=== PATIENT | female | born 1935 | race Caucasian/White ===

== ENCOUNTER 2017-07-19 13:30 | Inpatient (IN) ==
[2017-07-19] MEDS ORDERED: FUROSEMIDE 40 MG/4 ML INJECTION IVP ONE (13:55)
[2017-07-19] MEDS: SALINE FLUSH 10ml SYRINGE IVF PRN ×2 (13:56→14:04)
--- NOTE | 2017-07-19 13:59 | Emergency Department Report ---
Asthma HPI - General Stated Complaint: afib Time Seen by Provider: 07/19/17 13:37 Source: patient, family, RN notes reviewed, old records reviewed, other (Pts nurse assessor) Mode of arrival: ambulatory Limitations: no limitations - History of Present Illness HPI Narrative: 81yo woman presents to the ER for evaluation of a cough. Pt has had a chronic cough ever since a CELI 15 days ago. Pt was in the hospital then for a cardioversion for A-fib. Pt has an extensive cardiac hx. Since she was discharged, she has had a chronic cough, dyspnea, orthopnea, and JVD. Pt went to her nurse assessor's office today and was found to be in A-fib with RVR (120s) . Pts nurse assessor initially wanted to perform an ER work up himself, but txfr' ed pt to the ER for w/up. complaint: shortness of breath Onset (ago): day(s) (15) Severity: moderate Associated symptoms: dry cough, leg edema - Related Data Home Medications Medication Instructions Recorded Confirmed Glucosamine/MSM/Chondroit/C/Mn 0.5 tab PO DAILY #0 11/14/09 07/19/17 [Flexi Joint Tablet] Vitamin E Acetate [Vitamin E] 400 unit PO DAILY #0 11/14/09 07/19/17 Ascorbic Acid [Vitamin C] 1,000 mg PO DAILY 07/03/17 07/19/17 Calcium Carbonate [Calcium] 500 mg PO DAILY 07/03/17 07/19/17 Cholecalciferol (Vitamin D3) 1,000 unit PO DAILY 07/03/17 07/19/17 [Vitamin D3] Rivaroxaban [Xarelto] 20 mg PO DAILY 07/03/17 07/19/17 Milk of Magnesia [Mom] 30 ml PO PRN PRN 07/19/17 07/19/17 Multivitamin [One Daily] 1 each PO DAILY 07/19/17 07/19/17 Previous Rx's Medication Instructions Recorded Sotalol [Betapace] 80 mg PO BID #60 tab 07/04/17 Allergies Allergy/AdvReac Type Severity Reaction Status Date / Time phenytoin Allergy Mild Rash Verified 07/19/17 14:06 adhesive Allergy Unknown Verified 07/19/17 14:06 Review of Systems All systems: reviewed and negative except as stated Cardiovascular: Reports: as per HPI, dyspnea on exertion, orthopnea, edema. Denies: chest pain, palpitations, syncope, paroxysmal nocturnal dyspnea Respiratory: Reports: as per HPI, cough, dyspnea. Denies: wheezes, hemoptysis, stridor Integumentary: Reports: as per HPI, erythema PFSH Patient Stated Medical History Cardiac Arrhythmia Yes: A-fib Hypertension Yes Myocardial Infarction No Diabetes Mellitus Type 1 No Clotting Problems Yes: xeralto Osteoarthritis Yes Other Musculoskeletal Yes: MS, osteoporosis Other Yes: RAYNAUD'S Medical History Updates: Mitral valve regurgitation. A-fib. Tachy-rosie syndrome (refused pacer). Osteoporosis. Osteoarthritis. Constipation. Allergic rhinitis Physical Exam - Limitations Limitations: no limitations - General General appearance: alert, in no apparent distress - Normal Exams: Head:: Normocephalic without trauma Eyes:: Pupils are PERRLA w/ EOMI, No scleral icterus, irritation, or foreign bodies noted ENMT:: No facial trauma, nasal exudates, pharyngeal erythema, or exudates are noted Musculoskeletal:: No tenderness, or deformity noted Neurological:: Patient is alert, and oriented Psychiatric:: Patient exhibits, appropriate attention - Neck Neck exam: Present: normal inspection, full ROM, trachea midline, other (JVD present). Absent: tenderness, lymphadenopathy - Chest Chest inspection: Present: normal inspection, symmetric chest wall rise. Absent : tenderness, rash - Respiratory Respiratory exam: Present: crackles (In middle lung richard). Absent: normal lung sounds bilaterally (Lack of air movement in lower lobes), respiratory distress, wheezes, stridor, prolonged expiratory phase - Cardiovascular Cardiovascular exam: Present: tachycardia, irregular rhythm. Absent: regular rate, normal rhythm, rubs, gallop, clicks - Abdominal Exam Abdominal exam: Present: soft, normal bowel sounds. Absent: distention, tenderness, guarding, rebound, rigidity - Extremities Exam Extremities exam: Present: full ROM, normal capillary refill, pedal edema, other (Dependent erythema). Absent: normal inspection, tenderness - Psychiatric Psychiatric exam: Present: agitated, anxious Course - Consultations Consultation #1: Dr. Baptiste: - Difficult pt and - unclear whether due to cognitive deficit or other - H/o Mitral regurgitation, A-fib, Tachy/rosie - refused pacer - Saw PCM Jun for pharyngeal erythema; did not discuss with nurse assessor - Underwent CELI 11 APR prior to cardioversion; no pharyngeal abn - Placed on sotalol and warned of risk of torsades de points - Pt seen in clinic today in A-fib with RVR; clinically has CHF - Pt thinks that her cough and LE erythema are 2/2 sotalol; difficulty explaining pts dx and sx to pt; appears to be a trust deficit - Please call with results of testing/eval - Recommend lasix 1500: Requests pt be admitted to hospitalist service. Will plan to rate control and possibly cardiovert. Time: 13:50 Consultation #2: Hospitalist: Will admit for obs and consult cardiology. Time: 15:55 Vital Signs Temperature 97.9 F 07/19/17 13:31 Pulse Rate 100 07/19/17 13:31 Respiratory Rate 20 07/19/17 13:31 Blood Pressure 154/86 H 07/19/17 13:31 Pulse Oximetry 97 07/19/17 13:31 Temperature 97.9 F 07/19/17 13:31 Pulse Rate 100 07/19/17 15:30 Respiratory Rate 25 H 07/19/17 15:30 Blood Pressure 141/78 H 07/19/17 15:30 Pulse Oximetry 98 07/19/17 15:00 Dyspnea - MDM Narrative Medical decision making narrative: Pt with new-onset CHF in the setting of A-fib with RVR. Sx improved following IV lasix. After discussion with pts nurse assessor, discussed obs admission with hospitalist. Pt accepted for obs admission. - Differential Diagnosis Differential diagnosis: Likely: Pneumonia, COPD exacerbation, Pulmonary edema systolic, Pulmonary edema dystolic, Pneumothorax - Medical Records Attestation: I reviewed the patient's medical records. - Lab Data Attestation: I reviewed the patient's lab results. Result diagrams: 07/19/17 14:05 07/19/17 14:05 Lab Results 07/19/17 07/19/17 Range/Units 14:05 14:05 WBC 5.1 (4.5-11.0) T/MM3 RBC 4.26 (4.00-5.20) M/MM3 Hgb 13.1 (12-16) GM/DL Hct 40.0 (36-46) % MCV 93.9 (80-100) UM3 MCH 30.8 (26-34) UUG MCHC 32.8 (31-37) GM/DL RDW Std Deviation 45.7 (36.9-50.2) FL Plt Count 205 (130-400) T/MM3 MPV 10.7 (9.4-12.4) UM3 Immature Gran % (Auto) 0.2 (0.0-0.5) % Neut % (Auto) 49.7 (33-66) % Lymph % (Auto) 29.8 (23-45) % Terry % (Auto) 9.9 H (0-9.0) % Eos % (Auto) 9.0 H (0-4) % Baso % (Auto) 1.4 (0-2) % Neut # (Auto) 2.6 (1.8-7.7) T/MM3 Lymph # (Auto) 1.5 (1-4.8) T/MM3 Terry # (Auto) 0.5 (0-0.8) T/MM3 Eos # (Auto) 0.5 (0-0.5) T/MM3 Baso # (Auto) 0.1 (0-0.2) T/MM3 Abs Immat Gran (auto) 0.01 (0.00-0.03) T/MM3 Turbidity < 20 (0-20) Sodium 140 (134-144) MEQ/L Potassium 4.7 (3.6-5) MEQ/L Chloride 103 (98-107) MEQ/L Carbon Dioxide 29 (22-30) MEQ/L Anion Gap 8 (5-15) meq/L BUN 15.0 (7-17) MG/DL Creatinine 0.8 (0.7-1.2) mg/dL GFR Calculation 69 BUN/Creatinine Ratio 19 (6-26) RATIO Glucose 87 (65-110) MG/DL Calculated Osmolality 269 (261-280) MOSM/KG Calcium 10.2 (8.4-10.2) MG/DL Icterus Index < 2 (0-7) Troponin I < 0.012 (0-0.12) ng/ml NT-Pro-B Natriuret Pep 3470 H (0-175) pg/mL Specimen Hemolysis < 15 (0-25) - Radiology Data Attestation: I reviewed the patient's radiology results. - EKG Data EKG #1 EKG attestation: Yes: I reviewed and interpreted this EKG. EKG shows normal: axis, intervals, QRS complexes, ST-T waves Rate [ED.COU.EKR]: normal Rhythm: A.Fib Disposition Clinical Impression: Atrial fibrillation with RVR CHF exacerbation Qualifiers: Heart failure type: unspecified Qualified Code(s): I50.9 - Heart failure, unspecified Disposition: 02 [place] [facility] [place] Language[place] Condition: Improved Prescriptions: No Action Glucosamine/MSM/Chondroit/C/Mn [Flexi Joint Tablet] 0.5 tab PO DAILY #0 Calcium Carbonate [Calcium] 500 mg PO DAILY Rivaroxaban [Xarelto] 20 mg PO DAILY Ascorbic Acid [Vitamin C] 1,000 mg PO DAILY Multivitamin [One Daily] 1 each PO DAILY Vitamin E Acetate [Vitamin E] 400 unit PO DAILY #0 Cholecalciferol (Vitamin D3) [Vitamin D3] 1,000 unit PO DAILY Sotalol [Betapace] 80 mg PO BID #60 tab Milk of Magnesia [Mom] 30 ml PO PRN PRN PRN Reason: Constipation Referrals: Hung Niño MD [Primary Care Provider] - Time of Disposition: 16:02 - Seen By: physician
--- NOTE | 2017-07-19 15:55 | XRay Report ---
Indication: Dyspnea PROCEDURE: XR chest 1V: Encounter: Initial Comparison: July 02, 2017 Findings: The lungs are stable in appearance without new focal airspace consolidation. There is no pleural effusion or pneumothorax. The heart size, pulmonary vascularity and mediastinal contours are unchanged. IMPRESSION: Stable appearance of the chest without acute cardiopulmonary disease. .
--- NOTE | 2017-07-19 17:01 | History & Physical Report ---
History of Present Illness Date: 07/19/17 Chief complaint: Cough HPI: Breanne Singh is a pleasant 81-year-old woman who states she has had a dry cough since just before her cardioversion, which was done on 07/04/[address] Baptiste. She was reportedly converted out of A. fib into sinus rhythm for 1-2 days, but then went back into atrial fibrillation. She states that she could feel her heart going fast, but she denies any chest pain. She's had progressive shortness of breath, and has been sleeping with a wedge underneath her shoulders and with her feet elevated. She's had a little bit of swelling, but states that she always has "thick legs". She reports that she's been dizzy but denies syncope. She had a fall about a month ago without injury after tripping over a box. She states that she's had clear sinus drainage, which Dr. Niño thought could be allergies. She denies headaches, unilateral weakness, or abnormal paresthesias, though states that she does have occasional tingling in her fingertips because of Raynaud's. She denies any appetite changes, nausea, vomiting or diarrhea. She has been a little bit constipated. She denies any dysuria, but has been voiding frequently since receiving Lasix in the emergency department. She denies dysphasia, but has mild acid reflux. She was actually seen in Dr. Baptiste's office on 07/19/17, and he recommended evaluation in the emergency department for acute CHF exacerbation. Her pro-BNP was elevated at 3470. Troponin was negative. Chest x-ray showed cardiomegaly, but no significant CHF. EKG showed A. fib with a rate of 97. She was given Lasix [address] Baptiste was notified, and recommended hospital admission. At that time, the hospitalist service was consulted, and the patient was admitted to observation status. Review of Systems All systems PM: 10-point ROS was reviewed, no additional remarkable complaints except - Constitutional Constitutional: Present: as per HPI - EENMT Eyes: Present: requires corrective lenses Balance: Present: as per HPI Nose: Present: as per HPI Mouth/Throat: Present: as per HPI - Cardiovascular Cardiovascular: Present: as per HPI Vascular: Present: see HPI - Respiratory Respiratory: Present: as per HPI - Gastrointestinal Gastrointestinal: Present: as per HPI - Genitourinary Genitourinary: Present: as per HPI - Musculoskeletal Musculoskeletal: Absent: abnormal gait - Integumentary/Breasts Integumentary: Absent: rash, wounds - Neurological Neurological: Present: as per HPI - Psychiatric Psychiatric: Absent: anxiety - Endocrine Endocrine: Present: palpitations - Hematologic/Lymphatic Hematologic/Lymphatic: Present: easy bleeding, easy bruising - Allergic/Immunologic Allergic/Immunologic: Present: seasonal rhinorrhea Past Medical History Medical History Updates: Mitral valve regurgitation. A-fib, tachy-rosie. Tachy -rosie syndrome (refused pacer). HTN. Multiple sclerosis. Osteoporosis. Osteoarthritis. Constipation. Allergic rhinitis Surgical History: CELI with cardioversion 07/04/17: EF 60%, moderate mitral regurgitation, moderate tricuspid regurgitation, temporary cardioversion into sinus rhythm. Back surgery in 2013. Colonoscopy 01/15/13, by Dr. Ureña: Moderate sigmoid diverticulosis. Enterocele ligation and posterior vaginal vault reconstruction on 02/05/08, by Dr. Lee. Left rotator cuff repair in 2002. 2, appendectomy Family History Updates: Father had Parkinson's and at age 83. Mother of a massive stroke at age 79. Sister has atrial fibrillation. Brother with prediabetes. Another brother with osteoarthritis and stomach ulcers. Family History: As Above - Social History Smoking status: Never smoker Substance use type: does not use Alcohol intake frequency: does not drink Household members: spouse Social history: PCP: Dr. Niño CV: Dr. Baptiste Medications Home Medications Medication Instructions Recorded Confirmed Type Glucosamine/MSM/Chondroit/C/Mn 0.5 tab PO DAILY #0 11/14/09 07/19/17 History [Flexi Joint Tablet] Vitamin E Acetate [Vitamin E] 400 unit PO DAILY #0 11/14/09 07/19/17 History Ascorbic Acid [Vitamin C] 1,000 mg PO DAILY 07/03/17 07/19/17 History Calcium Carbonate [Calcium] 500 mg PO DAILY 07/03/17 07/19/17 History Cholecalciferol (Vitamin D3) 1,000 unit PO DAILY 07/03/17 07/19/17 History [Vitamin D3] Rivaroxaban [Xarelto] 20 mg PO DAILY 07/03/17 07/19/17 History Sotalol [Betapace] 80 mg PO BID #60 tab 07/04/17 07/19/17 Rx Milk of Magnesia [Mom] 30 ml PO PRN PRN 07/19/17 07/19/17 History Multivitamin [One Daily] 1 each PO DAILY 07/19/17 07/19/17 History Allergies Allergy/AdvReac Type Severity Reaction Status Date / Time phenytoin Allergy Mild Rash Verified 07/19/17 14:06 adhesive Allergy Unknown Verified 07/19/17 14:06 Exam Vital Signs: Temperature 97.9 F 07/19/17 13:31 Pulse Rate 100 07/19/17 15:30 Respiratory Rate 25 H 07/19/17 15:30 Blood Pressure 141/78 H 07/19/17 15:30 Pulse Oximetry 98 07/19/17 15:00 Telemetry Rhythm: A-fib - Constitutional Present: no acute distress, well nourished, well developed, thin - Routine HEENT Exam Head: Present: normocephalic Eye: Present: PERRL. Absent: conjunctival icterus, scleral injection ENT: Present: mucous membranes moist, oropharynx clear - Routine Neck Exam Present: supple, JVD - Routine Respiratory Exam Present: CTA bilaterally - Routine Cardiovascular Exam Present: murmur (2/6), irregularly irregular - Routine Abdominal Exam Present: soft, normoactive bowel sounds, non distended, non tender - Routine Extremities Exam Present: edema (trace bilateral lower extremity), normal capillary refill, extremity cold to touch (both hands are slightly cyanotic and cool to touch, consistent with patient's report of Raynaud's) - Routine Skin Exam Present: intact, dry, warm - Routine Neurological Exam Present: alert, oriented X3, CN II-XII intact (mild right eye ptosis without any other cranial nerve abnormalities), moving all extremities, vision grossly intact, hearing grossly intact, normal speech. Absent: altered mental status - Routine Psychiatric Exam Present: normal affect, normal thought process, cooperative Results - Labs CBC & Chem 7: 07/19/17 14:05 07/19/17 14:05 - ECG Data Tracing #1 I reviewed this ECG and interpreted as documented below: A. fib, rate 97. No ST segment elevation or depression. - Imaging and Cardiology Chest x-ray Status: image reviewed by me Additional comments: No CHF findings. Assessment and Plan (1) CHF exacerbation Current visit: Yes Status: Acute Assessment and Plan: Assessment CHF exacerbation Mitral valve regurgitation A-fib, tachy-rosie - declined pacemaker Recent CELI with cardioversion on 07/04/17, Dr. Baptiste discontinued atenolol and diltiazem and placed the patient on sotalol 80 mg twice a day. HTN Multiple sclerosis Osteoporosis Osteoarthritis Constipation Allergic rhinitis Plan Admit, observation status under the hospitalist service. PCP: Dr. Niño. CHF exacerbation, A-fib -Consult Dr. Baptiste: hold sotalol per Dr. Baptiste (in case it's contributing to cough, edema) -Diuresing well s/p Lasix 40 mg IV in ED - Dr. Baptiste recommends 40 mg IV BID. Renal function is stable (BUN 15, creatinine 0.8); K 4.7. -tele, measure I&O, daily weight -continue Xarelto Constipation -PRN meds Advanced directives -DPOA: Ney, son -Full code Discussed with Dr. Baptiste, Dr. Sharma, and Dr. Ford. DVT Prophylaxis: Xarelto Resuscitation Status: Full Code - Physician Narrative Physician: Dee Dee Ford MD Narrative: Date: 07/19/17 Time: 1829 Mrs. Singh was seen after arriving on the medical unit. She describes ARITA, cough, and increased ankle/abdominal swelling for the past ~10 days and when she is in afib in the past. No chest pain reported. The patient's primary concern when I spoke with her was of her "white tongue" which is been present since several days before cardioversion on 07/04. She has been voiding frequently since Lasix was administered in the emergency room and reports she is breathing a little better now than she was when she presented to the ER earlier today. Oropharynx without erythema however the tongue has a faint white coating on it. Respirations nonlabored with good airflow, faint basilar crackles R>L; irregularly irregular rhythm. +3 pitting edema bilateral lower extremities. Weight actually down somewhat from admission earlier this month. Chest x-ray reviewed by myself-borderline cardiomegaly and minor increased vascular markings/redistribution. Similar to chest x-ray one patient was admitted . Twelve-lead EKG with atrial fibrillation, no acute changes, rate 97 Diuresis initiated, continue as described above but times of Lasix changed to 7 AM/2 PM did frequency the patient is running to the bathroom currently to minimize disruption of sleep. Etiology of white tongue unclear-may represent thrush and will treat empirically as this is clearly causing patient significant concern. Discussed with Dr. Baptiste and Dr. Sharma. Hospital Course Summary Disclaimer: The visit summary below is not to be considered part of the above Progress Note. Hospital Course: 07/19/17 Admit, observation status under the hospitalist service. PCP: Dr. Niño. CHF exacerbation, A-fib -Consult Dr. Baptiste: hold sotalol per Dr. Baptiste (in case it's contributing to cough, edema) -Diuresing well s/p Lasix 40 mg IV in ED - Dr. Baptiste recommends 40 mg IV BID. Renal function is stable (BUN 15, creatinine 0.8); K 4.7. -tele, measure I&O, daily weight -continue Xarelto Constipation -PRN meds Advanced directives -DPOA: Ney, son -Full code
[2017-07-19 17:02] VITALS: BMI 25.9
[2017-07-19] MEDS ORDERED: ACETAMINOPHEN 325 MG TABLET PO PRN (17:16)
[2017-07-19] MEDS ORDERED: ONDANSETRON 4 MG/2 ML INJECTION IVP PRN (17:16)
[2017-07-19] MEDS ORDERED: SENNA + DOCUSATE TABLET PO PRN (17:16)
[2017-07-19] MEDS ORDERED: BISACODYL 10 MG SUPPOSITORY RECTALLY PRN (17:16)
[2017-07-19] MEDS ORDERED: FUROSEMIDE 40 MG/4 ML INJECTION IVP SCH (19:00)
--- NOTE | 2017-07-19 21:02 | Cardiology Consult Note ---
History of Present Illness Consult reason: atrial fibrillation, congestive heart failure, known to you History of present illness: Patient seen in office and in emergency department [address] Siu Admitted from our office the emergency department. Patient started Feeling worse about one day following cardioversion as she went back in atrial fibrillation. She had initially felt much better following the cardioversion. Complains of shortness of breath with any activity like walking the bathroom, associated with heart racing and palpitations , at times some dizziness. No chest pain. No syncope presyncope or falls. He also complains of some Sore throat, worse with cough. Apparently seen by Dr. Jennings 2 days after her Ron cardioversion and she was reassured HAD some redness, no dysphagia fever chills or neck lumps. She hasn't been able to lie down due to dyspnea and cough that is dry. Noticed increased lower extremity edema as well. tried to bring her to the emergency department over the weekend but patient refused. She presented to my office not feeling well with a myriad of complaints as above and was unable to lie down if at 30 head up due to cough and dyspnea. Of note, about the time of her cardioversion I had lengthy discussion about starting sotalol in attempt to maintain sinus rhythm also a discussion regarding the proarrhythmia associated with this drug, and really most antiarrhythmic drugs. Patient and verbalized understanding. 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 Review of Systems All systems PM: 10-point ROS was reviewed, no additional remarkable complaints except Review of systems: Except as below - Constitutional Constitutional: Present: fatigue. Absent: chills, fever(s) - Cardiovascular Cardiovascular: Present: palpitations, dyspnea on exertion, orthopnea, edema. Absent: chest pain, syncope - Respiratory Respiratory: Present: cough, dyspnea on exertion, wheezing. Absent: hemoptysis , pain on inspiration, excessive phlegm production [facility] Patient Stated Medical History Multiple Sclerosis Yes Cardiac Arrhythmia Yes: A-fib Hypertension Yes Clotting Problems Yes: xeralto Osteoarthritis Yes Other Musculoskeletal Yes: osteoporosis Shingles Yes: 2016 Other Yes: RAYNAUD'S Medical History Updates: Mitral valve regurgitation. A-fib, tachy-rosie. Tachy -rosie syndrome (refused pacer). HTN. Multiple sclerosis. Osteoporosis. Osteoarthritis. Constipation. Allergic rhinitis Surgical History: RON with cardioversion 07/04/17: EF 60%, moderate mitral regurgitation, moderate tricuspid regurgitation, temporary cardioversion into sinus rhythm. Back surgery in 2013. Postop A. fib required DC cardioversion 2013. Colonoscopy 01/15/13, by Dr. Ureña: Moderate sigmoid diverticulosis. Enterocele ligation and posterior vaginal vault reconstruction on 02/05/08, by Dr. Lee. Left rotator cuff repair in 2002. 2, appendectomy Family History Updates: Father had Parkinson's and at age 83. Mother of a massive stroke at age 79. Sister has atrial fibrillation. Brother with prediabetes. Another brother with osteoarthritis and stomach ulcers. - Social History Smoking status: Never smoker Substance use type: does not use Alcohol intake frequency: does not drink Household members: spouse service: No Current occupational status: retired Current residence: Apartment/Private Home Medications Home Medications Medication Instructions Recorded Confirmed Type Glucosamine/MSM/Chondroit/C/Mn 0.5 tab PO DAILY #0 11/14/09 07/26/17 History [Flexi Joint Tablet] Vitamin E Acetate [Vitamin E] 400 unit PO DAILY #0 11/14/09 07/26/17 History Ascorbic Acid [Vitamin C] 1,000 mg PO DAILY 07/03/17 07/26/17 History Calcium Carbonate 500 mg PO DAILY 07/03/17 07/26/17 History Cholecalciferol (Vitamin D3) 1,000 unit PO DAILY 07/03/17 07/26/17 History [Vitamin D3] Rivaroxaban [Xarelto] 20 mg PO DAILY 07/03/17 07/26/17 History Milk of Magnesia [Mom] 30 ml PO PRN PRN 07/19/17 07/26/17 History Multivitamin [One Daily] 1 tab PO DAILY 07/19/17 07/26/17 History Amiodarone [Pacerone] 200 mg PO BID #60 tab 07/21/17 07/26/17 Rx Carvedilol [Coreg] 6.25 mg PO BIDWM #60 tab 07/21/17 07/26/17 Rx Loratadine [Claritin] 10 mg PO ACB tab 07/21/17 07/26/17 Rx Nystatin Oral Liq. [Mycostatin] 5 ml PO QID 5 Days #100 ml 07/21/17 07/26/17 Rx Bumetanide Tab [Bumex 1 mg Tab] 1 mg PO DAILY #0 07/26/17 07/26/17 Rx Docusate Sodium [Colace] 200 mg PO DAILY 07/26/17 07/26/17 History Potassium Chloride [K-DUR 10 mEq 10 meq PO DAILY #60 tab 07/26/17 07/26/17 Rx Tablet] Senna + Docusate [Senna Plus 1 tab PO DAILY PRN 07/26/17 07/26/17 History Tablet] Allergies Allergy/AdvReac Type Severity Reaction Status Date / Time phenytoin Allergy Mild Rash Verified 07/26/17 10:55 adhesive Allergy Unknown Verified 07/26/17 10:55 Exam Vital signs: Temperature 97.9 F 07/19/17 13:31 Pulse Rate 108 H 07/19/17 17:01 Respiratory Rate 24 07/19/17 17:01 Blood Pressure 142/78 H 07/19/17 17:01 Pulse Oximetry 98 07/19/17 18:30 - Constitutional mild distress, other (positive orthopnea equivalent, unable to lie down at 30 due to cough) - Routine HEENT Exam Head: Present: normocephalic, atraumatic Eye: Present: EOMI, PERRL ENT: Present: mucous membranes moist Throat: other (oropharyngeal erythema mild to moderate possible small exudates on the right) - Routine Neck Exam Present: supple, JVD (at the mandibular angle), normal carotid upstroke. Absent : carotid bruit, lymphadenopathy, thyromegaly - Routine Chest/Breast/Axilla Exam Chest wall: Absent: tenderness - Routine Respiratory Exam Present: CTA bilaterally - Routine Cardiovascular Exam Present: no murmur, tachycardia, irregularly irregular - Routine Abdominal Exam Present: soft, normoactive bowel sounds, non distended, non tender. Absent: organomegaly, mass - Routine Extremities Exam Present: no edema (look puffy "lipidema" but no pitting edema, positive varicosities), pulses intact, normal capillary refill. Absent: cyanosis, clubbing - Routine Skin Exam Present: intact, dry. Absent: cyanosis, erythema - Routine Neurological Exam Present: alert, oriented X3, CN II-XII intact, moving all extremities, vision grossly intact, hearing grossly intact, normal speech. Absent: motor deficit, hemineglect, facial asymmetry - Routine Psychiatric Exam Present: cooperative, anxious, agitated, paranoid (initially, seems to calm down and she started feeling better following diuresis with IV Lasix in emergency department) Results 07/21/17 05:35 07/21/17 05:35 Intake and Output 07/19/17 07/19/17 07/19/17 06:59 14:59 22:59 Output Total 300 / 300 Balance -300 / -300 Output: Urine 300 / 300 Other: Urine Appearance Clear Urine Color Pale Yellow Urine Odor Normal # Voids 1 Weight 62.2 kg Patient Weight 07/20/17 06:59 Weight 62.2 kg - Imaging and Cardiology Echo: report reviewed EKG results: report reviewed, image reviewed Imaging & Cardiology Narrative: 07/19/17 20:59 RON cardioversion 07/04/2017 report reviewed 1. Borderline left atrial enlargement. 2. Normal LV size and systolic function. EF of 60%. 3. Moderate mitral regurgitation. 4. Moderate tricuspid regurgitation. 5. Very slightest degree of "smoke sign" in the left atrial appendage with reduced flow velocity but no demonstrable clot. 6. Successful DC cardioversion into sinus rhythm. 7. Medication postop were adjusted. See Medication list. I am going to discontinue Atenolol and Diltiazem and place the patient on Sotalol 80 mg b.i.d. in an attempt to maintain sinus rhythm and control symptoms. Risks and benefits including the risk of pro-arrhythmia were discussed with the patient and her and they are in agreement. We will do serial EKGs in the office and also continue future observation of valvular heart disease and previous history of tachy-rosie syndrome, for which patient had declined a pacemaker, at present not immediately indicated nevertheless. 07/19/17 21:18 Chest x-ray from ER reviewed Dr. Raman siu showed CHF - EKG Interpretation EKG: no acute changes EKG shows: atrial fibrillation EKG interpretations - EKG EKG results cardiology: no acute changes EKG shows: atrial fibrillation (with mild RVR) Assessment and Plan - Assessment and Plan (1) CHF exacerbation Problem details: Due to atrial fibrillation, RVR, mitral regurgitation Status : Resolved IV diuresis and monitor BMP I&O's and daily weight and blood pressure (2) Atrial fibrillation with RVR Status: Acute DC sotalol Start amiodarone By mouth carvedilol for rate control and CHF Repeat DC cardioversion, after adequate diuresis, to enhance safety of the procedure and increase her rate of success lower left atrial pressure that follows diuresis Continue anticoagulation (3) Mitral regurgitation Status: Chronic Medical therapy for now (4) Sick sinus syndrome Status: Chronic This is based on previous outpatient cardiac monitors past at 1218 months and her post-cardioversion EKG sinus bradycardia first-degree AV block and subsequent A. fib with RVR to a small medication change (see RON cardioversion report ) - Assessment and Plan High complexity decision making in regards to 1. choice of antiarrhythmic therapy , risk and benefits 2. Timing of repeat cardioversion, in relationship to CHF status, reflecting left atrial pressure, adequate antiarrhythmic therapy on board, risks and benefits and possible emergent need to treat severe bradycardia 3. Tachybradycardia syndrome management 4. Mitral regurgitation management, medical versus potential surgical 5.Patient and needing a lot of Reassurance, as there were extremely anxious, and initially upset, but felt much better with treatment initiated New and become more cooperative Also explained to the patient her that her A. fib with RVR associated with CHF is a reason for her symptoms, and they are unlikely related to her sotalol. Time spent approximately 75 minutes Hospital Course Summary Disclaimer: The visit summary below is not to be considered part of the above Progress Note. Hospital Course: 07/19/17 Admit, observation status under the hospitalist service. PCP: Dr. Niño. CHF exacerbation, A-fib -Consult Dr. Baptiste: hold sotalol per Dr. Baptiste (in case it's contributing to cough, edema) -Diuresing well s/p Lasix 40 mg IV in ED - Dr. Baptiste recommends 40 mg IV BID. Renal function is stable (BUN 15, creatinine 0.8); K 4.7. -tele, measure I&O, daily weight -continue Xarelto Constipation -PRN meds Advanced directives -DPOA: Ney, son -Full code
[2017-07-19] MEDS: NYSTATIN 500,000 units/5 ml ORAL LIQUID PO SCH (21:50)
[2017-07-19] MEDS: CARVEDILOL 6.25 MG TABLET PO SCH (21:53)
[2017-07-20] MEDS: FUROSEMIDE 40 MG/4 ML INJECTION IVP SCH ×2 (06:59→14:16)
[2017-07-20] MEDS: SALINE FLUSH 10ml SYRINGE IVF PRN (06:59)
[2017-07-20] MEDS: CARVEDILOL 6.25 MG TABLET PO SCH ×2 (08:15→17:17)
[2017-07-20] MEDS: POM RIVAROXABAN 20 MG TABLET PO SCH (08:16)
[2017-07-20] MEDS: ASCORBIC ACID 500 MG TABLET PO SCH (08:16)
[2017-07-20] MEDS: MULTI-VITAMIN PLAIN TABLET PO SCH (08:16)
[2017-07-20] MEDS: NYSTATIN 500,000 units/5 ml ORAL LIQUID PO SCH ×5 (08:16→22:41)
[2017-07-20] MEDS: AMIODARONE 200 MG TABLET PO SCH ×3 (08:16→22:40)
[2017-07-20] MEDS: CALCIUM CARBONATE 500 MG TABLET PO SCH (08:16)
[2017-07-20] MEDS: VITAMIN E 400 UNIT CAPSULE PO SCH (08:16)
[2017-07-20] MEDS: GLUCOSAMINE/CHONDROITIN 500 MG/400 MG CAPSULE PO SCH (08:16)
[2017-07-20] MEDS ORDERED: LORATADINE 10 MG TABLET PO ONE (11:16)
[2017-07-20] MEDS ORDERED: MENTHOL COUGH DROPS (RICOLA) MM PRN (11:17)
--- NOTE | 2017-07-20 11:38 | Progress Note ---
- Date 07/20/17 Subjective: F/U: CHF excerbation, a-fib (tachy-rosie), hypertension, sore throat. Lenora is seen this morning while resting in bed with her , Paolo, at the bedside. She reports that she feels a little better today. She states that she has been up and walking in the forrest[place] and denies any chest pain, shortness of breath, dyspnea on exertion, abdominal pain, nausea or vomiting. Her appetite has been fair to poor. She has good urinary output and bowels are moving. She does complain of persistent sore throat which she states has been present since prior to admission. She was seen by her PCP, Dr. Niño, prior to admission who thought her sore throat was from sinus drainage. She admits to a history of seasonal allergies and takes Claritin at home, which she has not been on since admission. No fevers or chills. Throat is clear with very mild erythema and no swelling, discharge, masses. Uvula is midline without swelling or deviation. She is noted to have some white debris on her tongue, concerning for thrush. She was started on nystatin on 07/19/17 but refused her dose because she didn't want to take any medication if she didn't know if it would help. She has expressed significant anxiety about all of her recent medication changes, specifically the financial cost of the medications and wasting them. Case management is working with her to see if bubble wrapped medications may be a better way for her. Labs today are unremarkable. Telemetry reveals rate controlled a-fib with occasional tachycardia. She denies any dizziness, palpitations or near syncope. She was seen and evaluated by Dr. Baptiste in consultation and started on amiodarone with discontinuation of her sotalol. Weight is trending down and edema improved with resolution of orthopnea and dyspnea. Objective Vital signs: Temperature 97.0 F 07/20/17 08:07 Pulse Rate 108 H 07/20/17 08:07 Respiratory Rate 18 07/20/17 08:07 Blood Pressure 149/93 H 07/20/17 08:07 Pulse Oximetry 92 07/20/17 08:07 Rhythm: Atrial Fibrillation with Normal Ventricular Rate Height/Weight/BMI: Height 5 ft 1 in Weight 132 lb 7.965 oz Body Mass Index 25.9 Comments: Sitting up in bed with her at the bedside. - Constitutional Present: no acute distress, well nourished, well developed, cooperative Comments: Appears anxious specifically about medications changes and cost associated with changes. - Routine HEENT Exam Head: Present: normocephalic, atraumatic Eye: Present: PERRL. Absent: conjunctival icterus ENT: Present: dentition normal Comments: Mucous membranes tacky; white debris on tongue concerning for thrush; uvula midline without swelling or deviation; very mild erythema to oral pharynx without discharge, swelling; voice unchanged. - Routine Respiratory Exam Present: CTA bilaterally. Absent: respiratory distress, stridor, wheezes Comments: Breathing easily on room air; no cough or conversational dyspnea. - Routine Cardiovascular Exam Present: S1, S2, murmur, irregularly irregular - Routine Abdominal Exam Present: soft, normoactive bowel sounds, non tender - Routine Extremities Exam Present: edema (1+ bilaterally), non tender, full ROM, pulses intact - Routine Back/Spine/Pelvis Exam Back/Spine: Present: full ROM. Absent: vertebral tenderness - Routine Musculoskeletal Exam Musculoskeletal: Present: no clubbing or cyanosis, moving extremities well - Routine Skin Exam Present: intact, dry, warm Comments: Afebrile. - Routine Neurological Exam Present: alert, moving all extremities, hearing grossly intact, normal speech - Routine Lymphatic Exam Lymphatic: Absent: lymphedema - Routine Psychiatric Exam Present: cooperative, good insight, anxious Results - Labs CBC & Chem 7: 07/20/17 04:08 07/20/17 04:08 Assessment and Plan (1) CHF exacerbation Problem details: Due to atrial fibrillation, RVR, mitral regurgitation Current visit: Yes Status: Acute Assessment and Plan: Assessment CHF exacerbation Mitral valve regurgitation A-fib, tachy-rosie - declined pacemaker Recent CELI with cardioversion on 07/04/17, Dr. Baptiste discontinued atenolol and diltiazem and placed the patient on sotalol 80 mg twice a day. Hypertension Multiple sclerosis Osteoporosis Osteoarthritis Constipation Allergic rhinitis Plan - 07/20/17: Due to persistent a-fib with occasional RVR in conjunction with CHF exacerbation requiring diuresis and close monitoring and addition/changes in cardiac medication, the patient was changed to inpatient status. CHF exacerbation, A-fib -Evaluated by Dr. Baptiste. Home sotolol discontinued. Amiodarone initated 400mg BID on 07/19/17. -Continued rate controlled a-fib with occasional RVR per telemetry. Continue to monitor closely. -Weight trending down (137.2 on admission, 132.7 today). Continue Lasix 40mg IV BID. Renal function stable. Monitor renal function and electrolytes closely. -Continue Xarelto for DVT prophylaxis. Constipation -Will add Miralax daily as well as Senna + in AM scheduled with PRN medications as needed. -Encourage oral intake. Sore throat -Present prior to admission. White debris noted to tongue. -Nystatin solution initiated 07/19 but patient refused due to cost. Discussed potential benefits with patient and and she is willing to take it. -Restart home Claritin for chronic allergic rhinitis and sinus drainage. Patient remains afebrile. Time spent with patient and family 36 minutes. DVT Prophylaxis: SCD's, Xarelto Resuscitation Status: Full Code - Time spent with patient Time with patient PN: 35 minutes - Physician Narrative Physician: Dee Dee Ford MD Narrative: Date: 07/20/17 Time: 1700 I have independently evaluated and examined this patient. I reviewed the chart, the patient's history, and the RIG WELDER/PA's documented findings as above. We discussed and formulated the assessment and plan as above with additions as below: Mrs. Singh was seen with family members at the bedside. She reports improvement in dyspnea and exertional dyspnea with no reported chest pain or palpitations overnight. She was able to rest fairly well and weight is down 4 pounds. Respirations nonlabored, good airflow, breath sounds clear, irregular cardiac rhythm. Minimal white plaque on tongue today compared to yesterday. Plans reviewed with Dr. Baptiste; labs reviewed with patient, her and son. Continue diuresis and amiodarone. Converted from IV Lasix to oral Bumex starting in a.m. Telemetry strips reviewed by myself-atrial fibrillation/flutter with rates 90- 110. Hospital Course Summary Disclaimer: The visit summary below is not to be considered part of the above Progress Note. Hospital Course: 07/19/17 Admit, observation status under the hospitalist service. PCP: Dr. Niño. CHF exacerbation, A-fib -Consult Dr. Baptiste: hold sotalol per Dr. Baptiste (in case it's contributing to cough, edema) -Diuresing well s/p Lasix 40 mg IV in ED - Dr. Baptiste recommends 40 mg IV BID. Renal function is stable (BUN 15, creatinine 0.8); K 4.7. -tele, measure I&O, daily weight -continue Xarelto Constipation -PRN meds Advanced directives -DPOA: Ney son -Full code Plan - 07/20/17: Due to persistent a-fib with occasional RVR in conjunction with CHF exacerbation requiring diuresis and close monitoring and addition/changes in cardiac medication, the patient was changed to inpatient status. CHF exacerbation, A-fib -Evaluated by Dr. Baptiste. Home sotolol discontinued. Amiodarone initated 400mg BID on 07/19/17. -Continued rate controlled a-fib with occasional RVR per telemetry. Continue to monitor closely. -Weight trending down (137.2 on admission, 132.7 today). Continue Lasix 40mg IV BID. Renal function stable. Monitor renal function and electrolytes closely. -Continue Xarelto for DVT prophylaxis. Constipation -Will add Miralax daily as well as Senna + in AM scheduled with PRN medications as needed. -Encourage oral intake. Sore throat -Present prior to admission. White debris noted to tongue. -Nystatin solution initiated 07/19 but patient refused due to cost. Discussed potential benefits with patient and and she is willing to take it. -Restart home Claritin for chronic allergic rhinitis and sinus drainage. Patient remains afebrile. Time spent with patient and family 36 minutes.
--- NOTE | 2017-07-20 16:08 | Cardiology Progress Note ---
Subjective Interval history: Angella feeling much her today, has been to the bathroom many times putting out about 200 cc of urine she says but couldn't remember how many times. She is a retired RN. Her dry cough is much better, now she is able to lie down. No shortness of breath walking the bathroom no chest pain or pressure. His had some chronic pain in both shoulders up attributes to her previous "bad shoulders ", not worse with walking activity or exertion. But even worse with the range of motion, but she thinks that when she lies on her left side seemed to make it worse at times. Said she had done a lot of lifting and previous jobs growing up. No chest pain or shoulder pain/upper back pain today walking the bathroom. IMPRESSION: January 2017 1. Pharmacological stress nuclear scan associated with chest heaviness with only mild partial response to sublingual nitroglycerin. This is by itself considered nonspecific. 2. Electrically associated with a [address] segment depression, positive for ischemia by EKG criteria. Frequent PVCs and later occasional PACs were present. 3. Myocardial perfusion scan nevertheless does not show any significant perfusion defect. It is considered normal with normal LV ejection fraction. she Denies dizziness or palpitations. 10 system review is negative otherwise. Sore throat has improved I&O's appear inaccurate at least -1000 cc, weights down at least four kilograms since admission yesterday. Potassium down to 3.6 rest of her chemistry, BUN creatinine and CBC okay. AST AST and TSH/T4 were normal 2 weeks ago Telemetry A. fib mostly 80s and 90s EKG no acute changes Troponin negative 2 Exam Vital signs: Temperature 96.0 F L 07/20/17 15:39 Pulse Rate 88 07/20/17 15:39 Respiratory Rate 18 07/20/17 15:39 Blood Pressure 130/74 07/20/17 15:39 Pulse Oximetry 96 07/20/17 15:39 Inpatient Medications: Generic Name Dose Route Start Last Admin Trade Name Freq PRN Reason Stop Dose Admin Acetaminophen 325 - 650 mg 07/19/17 17:16 Tylenol PO Q5H PRN Discomfort Amiodarone HCl 400 mg 07/20/17 09:00 07/20/17 08:16 Pacerone PO 400 mg BID EFRA Administration Ascorbic Acid 1,000 mg 07/20/17 09:00 07/20/17 08:16 Vitamin C PO Not Given DAILY [facility] Bisacodyl 10 mg 07/19/17 17:16 Dulcolax RECTALLY DAILY PRN Constipation Calcium Carbonate 500 mg 07/20/17 09:00 07/20/17 08:16 Calcium PO Not Given DAILY [facility] Carvedilol 6.25 mg 07/19/17 21:00 07/20/17 08:15 Coreg PO 6.25 mg BIDWM [facility] Administration Cholecalciferol 1,000 unit 07/20/17 09:00 07/20/17 08:16 Vit. D-3 PO Not Given DAILY [facility] Furosemide 40 mg 07/20/17 07:00 07/20/17 14:16 Lasix 40 Mg/4 Ml IVP 40 mg 07,14 [facility] Administration Glucosamine/Chondroitin 1 cap 07/20/17 09:00 07/20/17 08:16 Osteo Bi-Flex PO Not Given DAILY [facility] Loratadine 10 mg 07/21/17 06:30 Claritin PO ACB [facility] Magnesium Hydroxide 30 ml 07/19/17 17:16 07/19/17 22:02 Mom PO 30 ml DAILY PRN Administration Constipation Menthol 1 lozenge 07/20/17 11:17 Ricola Sf MM PRN PRN Cough Multivitamins 1 tab 07/20/17 09:00 07/20/17 08:16 Theragran PO Not Given DAILY [facility] Nystatin 5 ml 07/19/17 21:00 07/20/17 12:04 Mycostatin PO 07/29/17 20:59 5 ml QID [facility] Administration Ondansetron HCl 4 mg 07/19/17 17:16 Zofran IVP Q6H PRN Nausea &/or vomiting Polyethylene Glycol 17 gm 07/21/17 09:00 Miralax PO DAILY [facility] Rivaroxaban 20 mg 07/20/17 09:00 07/20/17 08:16 Xarelto PO 20 mg DAILY [facility] Administration Senna/Docusate Sodium 1 tab 07/19/17 17:16 Senna Plus Tablet PO BID PRN Constipation Senna/Docusate Sodium 1 tab 07/21/17 09:00 Senna Plus Tablet PO DAILY [facility] Sodium Chloride 10 - 80 ml 07/19/17 13:37 07/20/17 06:59 Iv Flush IVF 10 ml PRN PRN Administration Flushing Vitamin E 400 unit 07/20/17 09:00 07/20/17 08:16 Vitamin E PO Not Given DAILY [facility] Discontinued Medications Generic Name Dose Route Start Last Admin Trade Name Ra PRN Reason Stop Dose Admin Furosemide 40 mg 07/19/17 13:55 07/19/17 14:01 Lasix 40 Mg/4 Ml IVP 07/19/17 13:56 40 mg O ONE Administration Furosemide 40 mg 07/19/17 19:00 Lasix 40 Mg/4 Ml IVP 07,19 [facility] Loratadine 10 mg 07/20/17 11:16 07/20/17 14:16 Claritin PO 07/20/17 11:17 10 mg O ONE Administration - Constitutional no acute distress - Routine HEENT Exam Head: Present: normocephalic, atraumatic Eye: Present: EOMI, PERRL ENT: Present: mucous membranes moist - Routine Neck Exam Present: full ROM, normal carotid upstroke. Absent: JVD, carotid bruit, lymphadenopathy, thyromegaly - Routine Respiratory Exam Present: CTA bilaterally - Routine Cardiovascular Exam Present: no murmur, irregularly irregular. Absent: bradycardia, tachycardia, JVD - Routine Abdominal Exam Present: soft, normoactive bowel sounds, non distended, non tender. Absent: organomegaly - Routine Extremities Exam Present: no edema, pulses intact, normal capillary refill. Absent: cyanosis, clubbing - Detailed Upper Extremity Exam Shoulder/Upper Arm: Bilateral normal inspection, Bilateral full ROM - Routine Skin Exam Present: intact, warm. Absent: cyanosis, erythema - Routine Neurological Exam Present: alert, oriented X3, CN II-XII intact, moving all extremities, vision grossly intact, hearing grossly intact, normal speech. Absent: motor deficit, hemineglect, facial asymmetry - Routine Psychiatric Exam Present: normal affect, anxious (appears much calmer today) Results 07/20/17 04:08 07/20/17 04:08 - Imaging and Cardiology Echo: report reviewed Imaging & Cardiology Narrative: 07/20/17 16:01 IMPRESSION: 1. Pharmacological stress nuclear scan associated with chest heaviness with only mild partial response to sublingual nitroglycerin. This is by itself considered nonspecific. 2. Electrically associated with a [address] segment depression, positive for ischemia by EKG criteria. Frequent PVCs and later occasional PACs were present. 3. Myocardial perfusion scan nevertheless does not show any significant perfusion defect. It is considered normal with normal LV ejection fraction. - EKG Interpretation EKG shows: atrial fibrillation Assessment and Plan - Assessment and Plan (1) CHF exacerbation Problem details: Due to atrial fibrillation, RVR, mitral regurgitation Current visit: Yes Status: Acute Has diuresed very well , I'm going to switch her to oral Bumex order potassium supplement and follow-up PA and lateral chest x-ray in the morning She remains on room air. Follow-up labs in the morning. CHF education (2) Atrial fibrillation with RVR Current visit: Yes Status: Acute Rate better controlled on Coreg, amiodarone just started high-dose loading will finish on Sunday, Sunday morning will be 200 mg twice a day for one month then 100-200 mg daily. Risk and benefits and possible lifelong complications including possibility of irreversible pulmonary fibrosis, liver eye or organ toxicity discussed. 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 Will order baseline pulmonary function tests and DLCO, about one week allowing for her CHF to improves. cont Xarelto ,well tolerated . Options of treatment discussed, patient prefers to delay repeat cardioversion until she feels stronger in a later date. I would allow amiodarone loading to take place, and achieving lower left atrial pressure crease to assess and safety rates of cardioversion. Also discussed with the patient and family, Serious symptoms of severe dizziness or syncope that could happen if severe bradycardia occurs, in that case she would need to activate 911 and come the emergency room. (3) Mitral regurgitation Current visit: Yes Status: Chronic (4) Sick sinus syndrome Current visit: Yes Status: Chronic - Assessment and Plan She appears much better today I will follow the patient intermittently while in the hospital. Treatment plan discussed with hospitalist Feel free to contact me should you have cardio vascular concerns. Patient follow-up in about one week. Thank you Hospital Course Summary Disclaimer: The visit summary below is not to be considered part of the above Progress Note. Hospital Course: 07/19/17 A
--- NOTE | 2017-07-20 16:53 | Cardiology Progress Note ---
Exam Vital signs: Temperature 96.0 F L 07/20/17 15:39 Pulse Rate 88 07/20/17 15:39 Respiratory Rate 18 07/20/17 15:39 Blood Pressure 130/74 07/20/17 15:39 Pulse Oximetry 95 07/20/17 16:25 Inpatient Medications: Generic Name Dose Route Start Last Admin Trade Name Freq PRN Reason Stop Dose Admin Acetaminophen 325 - 650 mg 07/19/17 17:16 Tylenol PO Q5H PRN Discomfort Amiodarone HCl 400 mg 07/20/17 09:00 07/20/17 08:16 Pacerone PO 07/22/17 21:00 400 mg BID [facility] Administration Amiodarone HCl 200 mg 07/23/17 09:00 Pacerone PO BID [facility] Ascorbic Acid 1,000 mg 07/20/17 09:00 07/20/17 08:16 Vitamin C PO Not Given DAILY [facility] Bisacodyl 10 mg 07/19/17 17:16 Dulcolax RECTALLY DAILY PRN Constipation Bumetanide 1 mg 07/21/17 09:00 Bumex 1 Mg Tab PO [id number] [facility] Calcium Carbonate 500 mg 07/20/17 09:00 07/20/17 08:16 Calcium PO Not Given DAILY [facility] Carvedilol 6.25 mg 07/19/17 21:00 07/20/17 08:15 Coreg PO 6.25 mg BIDWM [facility] Administration Cholecalciferol 1,000 unit 07/20/17 09:00 07/20/17 08:16 Vit. D-3 PO Not Given DAILY [facility] Glucosamine/Chondroitin 1 cap 07/20/17 09:00 07/20/17 08:16 Osteo Bi-Flex PO Not Given DAILY [facility] Loratadine 10 mg 07/21/17 06:30 Claritin PO ACB [facility] Magnesium Hydroxide 30 ml 07/19/17 17:16 07/19/17 22:02 Mom PO 30 ml DAILY PRN Administration Constipation Menthol 1 lozenge 07/20/17 11:17 Ricola Sf MM PRN PRN Cough Multivitamins 1 tab 07/20/17 09:00 07/20/17 08:16 Theragran PO Not Given DAILY [facility] Nystatin 5 ml 07/19/17 21:00 07/20/17 12:04 Mycostatin PO 07/29/17 20:59 5 ml QID [facility] Administration Ondansetron HCl 4 mg 07/19/17 17:16 Zofran IVP Q6H PRN Nausea &/or vomiting Polyethylene Glycol 17 gm 07/21/17 09:00 Miralax PO DAILY [facility] Potassium Chloride 10 meq 07/20/17 17:30 K-Dur 10 Meq Tablet PO BIDWM [facility] Potassium Chloride 20 meq 07/20/17 16:12 K-Dur 20 Meq Tablet PO 07/20/17 16:13 O ONE Rivaroxaban 20 mg 07/20/17 09:00 07/20/17 08:16 Xarelto PO 20 mg DAILY [facility] Administration Senna/Docusate Sodium 1 tab 07/19/17 17:16 Senna Plus Tablet PO BID PRN Constipation Senna/Docusate Sodium 1 tab 07/21/17 09:00 Senna Plus Tablet PO DAILY [facility] Sodium Chloride 10 - 80 ml 07/19/17 13:37 07/20/17 06:59 Iv Flush IVF 10 ml PRN PRN Administration Flushing Vitamin E 400 unit 07/20/17 09:00 07/20/17 08:16 Vitamin E PO Not Given DAILY [facility] Discontinued Medications Generic Name Dose Route Start Last Admin Trade Name Freq PRN Reason Stop Dose Admin Furosemide 40 mg 07/19/17 13:55 07/19/17 14:01 Lasix 40 Mg/4 Ml IVP 07/19/17 13:56 40 mg O ONE Administration Furosemide 40 mg 07/19/17 19:00 Lasix 40 Mg/4 Ml IVP 07,19 [facility] Furosemide 40 mg 07/20/17 07:00 07/20/17 14:16 Lasix 40 Mg/4 Ml IVP 40 mg 07,14 [facility] Administration Loratadine 10 mg 07/20/17 11:16 07/20/17 14:16 Claritin PO 07/20/17 11:17 10 mg O ONE Administration Results 07/20/17 04:08 07/20/17 04:08 Assessment and Plan - Assessment and Plan (1) CHF exacerbation Problem details: Due to atrial fibrillation, RVR, mitral regurgitation Current visit: Yes Status: Acute (2) Atrial fibrillation with RVR Current visit: Yes Status: Acute (3) Mitral regurgitation Current visit: Yes Status: Acute (4) Sick sinus syndrome Current visit: Yes Status: Acute - Attestation Attestation Narrative: 07/20/17 16:39 Family conference for approximately [address] with her son Rosie present the entire time, and her present in the initial 15 minutes or so. I went over her atrial fibrillation previous DC cardioversion 2013 following back surgery, then 2 weeks ago. Went over the definition and treatment modalities of atrial fibrillation with tachybradycardia syndrome patient was hesitant to have a pacemaker insertion , might agree to that. Discussed the role of pharmacological therapy and pacemaker insertion and keep heart rate within normal limits and there may be an advantage of maintaining sinus rhythm in this patient who is highly symptomatic with A. fib and has demonstrated CHF, even with a mild RVR 100 and teens -120s. There may be significant procedure risk with A. fib ablation, and benefit at her age may be less, so I don't recommended that at this time. Discussed potential for rate control strategy . I explained to her reason for CHF and A. fib RVR is conservative treatment with sotalol start stopping atenolol and diltiazem trend to prevent / avoid the significant bradycardia and the increased risk potential for proarrhythmia such as torsade he points which is bradycardia dependent, without protective benefit pacemaker insertion, patient had been been reluctant to do . Post cardioversion, Her sinus rhythm was in the 50s with first degree AV block. Touched based on the delicate balance between the bleeding risk and clotting risk in regards to her A. fib cardioversion and possible pacemaker implant. 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 Fully understood the rationale for anticoagulation and antiarrhythmic therapy/ amiodarone risk and benefits possible complications/side effects and they are in agreement with the treatment. Quickly touched on the role of her mitral valve disorder in her CHF and A. fib . we feel that it ought to be observed at this time. Hospital Course Summary Disclaimer: The visit summary below is not to be considered part of the above Progress Note.
[2017-07-21] MEDS ORDERED: LORATADINE 10 MG TABLET PO SCH (06:30)
[2017-07-21 08:08] VITALS: BP 130/86; PULSE 106; RESP 18; TEMP 96.8
[2017-07-21] MEDS: AMIODARONE 200 MG TABLET PO SCH (08:49)
[2017-07-21] MEDS: ASCORBIC ACID 500 MG TABLET PO SCH ×2 (08:49→08:57)
[2017-07-21] MEDS: VITAMIN E 400 UNIT CAPSULE PO SCH ×2 (08:49→08:57)
[2017-07-21] MEDS: MULTI-VITAMIN PLAIN TABLET PO SCH ×2 (08:49→08:57)
[2017-07-21] MEDS: CARVEDILOL 6.25 MG TABLET PO SCH (08:49)
[2017-07-21] MEDS: SENNA + DOCUSATE TABLET PO SCH ×2 (08:49→08:57)
[2017-07-21] MEDS: CALCIUM CARBONATE 500 MG TABLET PO SCH ×2 (08:49→08:57)
[2017-07-21] MEDS: NYSTATIN 500,000 units/5 ml ORAL LIQUID PO SCH (08:50)
[2017-07-21] MEDS: POM RIVAROXABAN 20 MG TABLET PO SCH (08:50)
[2017-07-21] MEDS: GLUCOSAMINE/CHONDROITIN 500 MG/400 MG CAPSULE PO SCH (08:53)
[2017-07-21] MEDS ORDERED: BUMETANIDE 1 MG TABLET PO SCH (09:00)
[2017-07-21] MEDS ORDERED: POLYETHYL GLYCOL 3350 17gm PACKET PO SCH (09:00)
--- NOTE | 2017-07-21 11:33 | Discharge Summary ---
Discharge Information Date of admission: 07/20/17 11:23 Anticipated date of discharge: 07/21/17 Attending Physician: Dee Dee Ford MD Primary care physician: Hung Niño MD Consults: Star Baptiste MD, cardiology - Discharge Diagnosis (1) CHF exacerbation Status: Resolved CHF exacerbation, resolved Mitral valve regurgitation A-fib, tachy-rosie - declined pacemaker Recent CELI with cardioversion on 07/04/17, brief conversion to sinus. Hypertension Sore throat/thrush Multiple sclerosis Osteoporosis Osteoarthritis Constipation Allergic rhinitis - Laboratory Labs: 07/21/17 05:35 07/21/17 05:35 - Radiology Radiology: Serial chest x-rays failed to show congestive failure. History of Present Illness HPI: Breanne Singh is a pleasant 81-year-old woman who states she has had a dry cough since just before her cardioversion, which was done on 07/04/[address] Baptiste. She was reportedly converted out of A. fib into sinus rhythm for 1-2 days, but then went back into atrial fibrillation. She states that she could feel her heart going fast, but she denies any chest pain. She's had progressive shortness of breath, and has been sleeping with a wedge underneath her shoulders and with her feet elevated. She's had a little bit of swelling, but states that she always has "thick legs". She reports that she's been dizzy but denies syncope. She had a fall about a month ago without injury after tripping over a box. She states that she's had clear sinus drainage, which Dr. Niño thought could be allergies. She denies headaches, unilateral weakness, or abnormal paresthesias, though states that she does have occasional tingling in her fingertips because of Raynaud's. She denies any appetite changes, nausea, vomiting or diarrhea. She has been a little bit constipated. She denies any dysuria, but has been voiding frequently since receiving Lasix in the emergency department. She denies dysphasia, but has mild acid reflux. She was actually seen in Dr. Baptiste's office on 07/19/17, and he recommended evaluation in the emergency department for acute CHF exacerbation. Her pro-BNP was elevated at 3470. Troponin was negative. Chest x-ray showed cardiomegaly, but no significant CHF. EKG showed A. fib with a rate of 97. She was given Lasix [address] Baptiste was notified, and recommended hospital admission. At that time, the hospitalist service was consulted, and the patient was admitted to observation status. Objective Vital signs: Temperature 96.8 F 07/21/17 08:00 Pulse Rate 106 H 07/21/17 08:00 Respiratory Rate 18 07/21/17 08:00 Blood Pressure 130/86 07/21/17 08:00 Pulse Oximetry 95 07/21/17 08:00 Rhythm: Atrial Fibrillation with RVR Height/Weight/BMI: Weight 60.1 kg - Constitutional Present: no acute distress, well nourished, well developed - Routine HEENT Exam Head: Present: normocephalic Eye: Present: PERRL. Absent: conjunctival icterus, scleral injection ENT: Present: oropharynx clear (thrush improved) - Routine Respiratory Exam Present: CTA bilaterally - Routine Cardiovascular Exam Present: tachycardia, irregularly irregular - Routine Abdominal Exam Present: soft, normoactive bowel sounds, non distended, non tender - Routine Extremities Exam Present: edema (improved), pulses intact - Routine Musculoskeletal Exam Musculoskeletal: Present: moving extremities well - Routine Skin Exam Present: intact, dry, warm - Routine Neurological Exam Present: alert, oriented X3, normal speech - Routine Psychiatric Exam Present: normal affect, cooperative Hospital Course This is a general summary of the patient's hospital course. For more details refer to the complete medical record. Hospital course: Mrs. Singh was admitted to observation status on 07/19/17 for CHF exacerbation and A. fib with RVR. Dr. Baptiste was consulted. Sotalol was discontinued and instead carvedilol was initiated for rate control and CHF. High-dose amiodarone was started while in the hospital. Xarelto was continued. She was diuresed with Lasix 40 mg IV BID initially. On the she was converted to oral Bumex 1 mg BID. She remained slightly tachycardic with rates <110. Electrolytes and renal function remained stable during her hospital course. Her weight trended down from 64.8 kg on admission to 60.1 kg on day of discharge. She was also started on nystatin on 07/20 for thrush, which was improving by discharge. At time of discharge she was sent with the following rx as discussed with Dr. Baptiste: Bumex 1 mg PO BID, Amiodarone 200 mg BID x 1 month (after 1 month dose will be reduced), and Coreg 6.[address] Baptiste has scheduled PFTs for next week since she is starting amiodarone. Will check BMP in 1 week, and she also should see Dr. Baptiste in 1 week. F/U with Dr. Niño in 1-2 weeks. Time spent with patient: discharge greater than 30 minutes Resuscitation Status: Full Code Discharge Plan - Discharge Disposition Discharge Date: 07/21/17 Disposition: Discharged Home, Self-Care *Condition: Improved Reason For Visit (Visit label in EMR): CHF; a-fib with RVR - Discharge Medications *Discharge Medications: New RX: Amiodarone [Pacerone] 200 mg PO BID #60 tab RX: Bumetanide Tab [Bumex 1 mg Tab] 1 mg PO [id number] #60 tab RX: Carvedilol [Coreg] 6.25 mg PO BIDWM #60 tab RX: Loratadine [Claritin] 10 mg PO ACB tab RX: Nystatin Oral Liq. [Mycostatin] 5 ml PO QID 5 Days #100 ml RX: Potassium Chloride [K-DUR 10 mEq Tablet] 10 meq PO BIDWM #60 tab Continue RX: Glucosamine/MSM/Chondroit/C/Mn [Flexi Joint Tablet] 0.5 tab PO DAILY #0 RX: Calcium Carbonate [Calcium] 500 mg PO DAILY RX: Rivaroxaban [Xarelto] 20 mg PO DAILY RX: Ascorbic Acid [Vitamin C] 1,000 mg PO DAILY RX: Multivitamin [One Daily] 1 each PO DAILY RX: Vitamin E Acetate [Vitamin E] 400 unit PO DAILY #0 RX: Cholecalciferol (Vitamin D3) [Vitamin D3] 1,000 unit PO DAILY RX: Milk of Magnesia [Mom] 30 ml PO PRN PRN PRN Reason: Constipation Discontinued RX: Sotalol [Betapace] 80 mg PO BID #60 tab - Discharge Packet/Instructions *Diet: Heart healthy, low sodium *Activity: As tolerated. *Pain Management/Treatment: Tylenol if needed. Nystatin as prescribed to help with thrush/sore throat. *Wound Care: N/A Additional Instructions: Pulmonary Function Tests next week (scheduled per Dr. Baptiste). Have lab drawn in 1 week (BMP) *Expected Signs/Symptoms: Cough - hopefully will continue to improve *Notify Physician if: Weakness, dizziness, passing out, chest pain, difficulty breathing, fever, confusion, or any new problems. If symptoms are severe activate 911. *During Business Hours Contact: Dr. Baptiste's office or Dr. Niño's office. *After Business Hours Contact: The on-call provider for Dr. Baptiste and/or Dr. Niño. *Pending Lab/Results: No Pending Lab Outpatient Orders: BMP - Basic Metabolic - [facility] [place] Time Frame: 1 Week, Location: None Selected - Referrals/Follow Up *Referrals/Follow Up: Nnia Baptiste MD [Physician] - 1 Week Hung Niño MD [Primary Care Provider] - 1 Week (1-2 weeks) - Patient Handouts Patient Handouts: [facility] [place] Congestive Heart Failure - Dismissal Complete Discharge Instructions are:: Complete Physician Narrative - Narrative Physician: Dee Dee Ford MD Attestation Narrative: Date: 07/21/17 Time: 1440 I have independently evaluated and examined this patient. I reviewed the chart, the patient's history, and the [employer]/PA's documented findings as above. We discussed and formulated the assessment and plan as above with additions as below: denied dyspnea or palpitations when seen this morning. She additionally reports that time is better. Respirations nonlabored with good airflow, no crackles appreciated. Irregular cardiac rhythm. Telemetry reviewed-atrial fibrillation with rates 90-106. Chest x-ray reviewed by myself-NAD. Stable for discharge on regimen described above. Will need to have electrolytes evaluated in approximately one week.
[2017-07-21 12:46] VITALS: O2SAT 96
--- NOTE | 2017-07-22 10:10 | XRay Report ---
INDICATION: CHF follow-up PROCEDURE: CHEST 2-VIEWS UPRIGHT (PA & LAT) Encounter: Initial COMPARISON: July 19, 2017 Findings: The lungs are stable in appearance without new focal airspace consolidation. There is no pleural effusion or pneumothorax. The heart size, pulmonary vascularity and mediastinal contours are unchanged. IMPRESSION: Stable appearance of the chest without acute cardiopulmonary disease. .
[2017-07-23] MEDS ORDERED: AMIODARONE 200 MG TABLET PO SCH (09:00)
--- NOTE | 2017-07-26 22:48 | Cardiology Consult Note ---
History of Present Illness Consult reason: known to you History of present illness: 81-year-old female well known to me with complex chronic cardiac history including recurrent atrial fibrillation or DC cardioversion 2 most recently 3 weeks ago moderate mitral regurgitation and CHF associated with A. fib and mitral regurg also chronic sick sinus syndrome based on outpatient workup. Syncope or presyncope. Was just here in the hospital for a week ago with CHF associated with A. fib RVR and improved following rate control and diuresis Patient was brought in the emergency room by her due to feeling poorly whenever her pulse rate was over 100 -100 and teens ,experiencing exertional palpitations. No dizziness or syncope. No lower extremity edema no trouble lying down and orthopnea PND . No angina or dyspnea, positive for headache and not feeling well in general. I was asked to consult by Rosa REYES covering emergency department. Cough resolved, sore throat a whole lot better and pain almost resolved. No fever chills lumps in the neck or dysphagia or odynophagia. Labs and diagnostic data reviewed BUN /creatinine both elevated, see trend , up from 0.9 last week to 1.4 today, electrolytes okay EKG showed A. fib rate in the 90s without rate control, no acute changes ischemia. No significant bleeding problems hematochezia melena or strokelike symptoms no falls or syncope Review of Systems All systems PM: 10-point ROS was reviewed, no additional remarkable complaints except PFSH Medical History Updates: Mitral valve regurgitation. A-fib, tachy-rosie. Tachy -rosie syndrome (refused pacer). HTN. Multiple sclerosis. Osteoporosis. Osteoarthritis. Constipation. Allergic rhinitis Surgical History: CELI with cardioversion 07/04/17: EF 60%, moderate mitral regurgitation, moderate tricuspid regurgitation, temporary cardioversion into sinus rhythm. Back surgery in 2013. Colonoscopy 01/15/13, by Dr. Ureña: Moderate sigmoid diverticulosis. Enterocele ligation and posterior vaginal vault reconstruction on 02/05/08, by Dr. Lee. Left rotator cuff repair in 2002. 2, appendectomy Family History Updates: Father had Parkinson's and at age 83. Mother of a massive stroke at age 79. Sister has atrial fibrillation. Brother with prediabetes. Another brother with osteoarthritis and stomach ulcers. - Social History Smoking status: Never smoker Substance use type: does not use Alcohol intake frequency: does not drink Household members: spouse Current occupational status: retired Current residence: Apartment/Private Home Medications Home Medications Medication Instructions Recorded Confirmed Type Glucosamine/MSM/Chondroit/C/Mn 0.5 tab PO DAILY #0 11/14/09 07/26/17 History [Flexi Joint Tablet] Vitamin E Acetate [Vitamin E] 400 unit PO DAILY #0 11/14/09 07/26/17 History Ascorbic Acid [Vitamin C] 1,000 mg PO DAILY 07/03/17 07/26/17 History Calcium Carbonate 500 mg PO DAILY 07/03/17 07/26/17 History Cholecalciferol (Vitamin D3) 1,000 unit PO DAILY 07/03/17 07/26/17 History [Vitamin D3] Rivaroxaban [Xarelto] 20 mg PO DAILY 07/03/17 07/26/17 History Milk of Magnesia [Mom] 30 ml PO PRN PRN 07/19/17 07/26/17 History Multivitamin [One Daily] 1 tab PO DAILY 07/19/17 07/26/17 History Amiodarone [Pacerone] 200 mg PO BID #60 tab 07/21/17 07/26/17 Rx Carvedilol [Coreg] 6.25 mg PO BIDWM #60 tab 07/21/17 07/26/17 Rx Loratadine [Claritin] 10 mg PO ACB tab 07/21/17 07/26/17 Rx Nystatin Oral Liq. [Mycostatin] 5 ml PO QID 5 Days #100 ml 07/21/17 07/26/17 Rx Bumetanide Tab [Bumex 1 mg Tab] 1 mg PO DAILY #0 07/26/17 07/26/17 Rx Docusate Sodium [Colace] 200 mg PO DAILY 07/26/17 07/26/17 History Potassium Chloride [K-DUR 10 mEq 10 meq PO DAILY #60 tab 07/26/17 07/26/17 Rx Tablet] Senna + Docusate [Senna Plus 1 tab PO DAILY PRN 07/26/17 07/26/17 History Tablet] Allergies Allergy/AdvReac Type Severity Reaction Status Date / Time phenytoin Allergy Mild Rash Verified 07/26/17 10:55 adhesive Allergy Unknown Verified 07/26/17 10:55 Exam Vital signs: Temperature 96.8 F 07/21/17 08:00 Pulse Rate 106 H 07/21/17 08:00 Respiratory Rate 18 07/21/17 08:00 Blood Pressure 130/86 07/21/17 08:00 Pulse Oximetry 96 07/21/17 11:30 - Constitutional no acute distress, other (no orthopnea) - Routine HEENT Exam Head: Present: normocephalic, atraumatic Eye: Present: EOMI, PERRL ENT: Present: mucous membranes moist Throat: normal inspection - Routine Neck Exam Present: normal carotid upstroke. Absent: JVD, carotid bruit, lymphadenopathy, thyromegaly - Routine Chest/Breast/Axilla Exam Chest wall: Absent: tenderness - Routine Respiratory Exam Present: CTA bilaterally - Routine Cardiovascular Exam Present: no murmur, irregularly irregular. Absent: bradycardia, tachycardia - Routine Abdominal Exam Present: soft, normoactive bowel sounds, non distended, non tender. Absent: organomegaly - Routine Extremities Exam Present: no edema, pulses intact, normal capillary refill. Absent: cyanosis, clubbing, extremity cold to touch - Routine Skin Exam Present: intact, dry, warm. Absent: cyanosis, erythema - Routine Neurological Exam Present: alert, oriented X3, CN II-XII intact, moving all extremities, vision grossly intact, normal speech. Absent: motor deficit, hearing grossly intact, hemineglect, facial asymmetry - Routine Psychiatric Exam Present: normal thought process, cooperative, anxious Results 07/21/17 05:35 07/21/17 05:35 - Imaging and Cardiology Echo: report reviewed Holter: report reviewed EKG results: image reviewed Imaging & Cardiology Narrative: 07/31/17 13:45 Scintigraphic a negative myocardial perfusion scan about 8 months ago - EKG Interpretation EKG: not changed from: (previous EKG) EKG shows: atrial fibrillation (rate in the 90s) EKG interpretations - EKG EKG results cardiology: no acute changes, not changed from: (previous) EKG shows: atrial fibrillation Assessment and Plan - Assessment and Plan (1) CHF exacerbation Problem details: Due to atrial fibrillation, RVR, mitral regurgitation Status : Resolved (2) Atrial fibrillation with RVR Status: Acute (3) Mitral regurgitation Status: Chronic (4) Sick sinus syndrome Status: Chronic - Assessment and Plan Palpitations seem to correlate with increased heart rate from symptom diary brought in by patient and her on observation. sHe is a retired RN. She is very anxious. Advised to take an extra Coreg 6.25 mg when necessary and heart rate greater than 100 Due to increased BUN and creatinine, and improved CHF, I asked her to lower Bumex to 1 mg daily potassium chloride to 10 meq daily Discussed with the ER mid-level Alysia REYES Discussed with the patient and her Follow-up appointment in one week with EKG Also clarification obtaining baseline PFTs with DLCO due to starting amiodarone recently, patient and are fully aware long list of possible side effects and they're in agreement Thank you for consultation Hospital Course Summary Disclaimer: The visit summary below is not to be considered part of the above Progress Note. Hospital Course: Mrs. Singh was admitted to observation status on 07/19/17 for CHF exacerbation and A. fib with RVR. Dr. Baptiste was consulted. Sotalol was discontinued and instead carvedilol was initiated for rate control and CHF. High-dose amiodarone was started while in the hospital. Xarelto was continued. She was diuresed with Lasix 40 mg IV BID initially. On the she was converted to oral Bumex 1 mg BID. She remained slightly tachycardic with rates <110. Electrolytes and renal function remained stable during her hospital course. Her weight trended down from 64.8 kg on admission to 60.1 kg on day of discharge. She was also started on nystatin on 07/20 for thrush, which was improving by discharge. At time of discharge she was sent with the following rx as discussed with Dr. Baptiste: Bumex 1 mg PO BID, Amiodarone 200 mg BID x 1 month (after 1 month dose will be reduced), and Coreg 6.[address] Baptiste has scheduled PFTs for next week since she is starting amiodarone. Will check BMP in 1 week, and she also should see Dr. Baptiste in 1 week. F/U with Dr. Niño in 1-2 weeks.
== END 2017-07-21 13:55 | disposition home or self-care (01) | DRG 292 ==
LOC: ED 13:30 → MED 13:30
PROVIDERS: ADMIT Internal Medicine; ATTEND Internal Medicine